=== PATIENT | female | born 1955 | race Caucasian/White ===

== ENCOUNTER 2016-08-04 11:47 | Emergency (ER) | payer OTHER ==
--- NOTE | 2016-08-04 12:13 | ER PHYSICIAN DOCUMENTATION ---
Physician Documentation [place] Name:Tisha Correia Age:60 yrs Sex:Female :1955 Arrival Date:08/04/2016 Time:11:47 Bed6 Private MD: Michael Hope Disposition: 08/04/16 12:05 Discharged to Home/Self Care. Impression: Wrist Sprain. - Condition is Good. - Discharge Instructions: WRIST [facility]. - Medical Reconciliation form form. - Follow up: Private Physician; When: As needed; Reason: Worsening of condition. - Problem is new. - Symptoms have improved. HPI: 08/04 11:57 This 60 yrs old Female presents to ER with complaints of Arm Pain - LEFT. sc 11:57 The patient or guardian complains of injury. The complaints affect the left wrist. sc Context: The problem was sustained outdoors, resulted from a fall, on an outstretched hand. Onset: The symptom(s)/episode began/occurred 10 day(s) ago. Modifying factors: the symptoms are aggravated by lifting weight. Historical: - Allergies: ERGOT ALKALOIDS; - Home Meds: 1. [place] Thyroid Oral 2. allopurinol Oral 3. duloxetine oral 4. progesterone micronized oral 5. Clonazepam Oral - PMHx: GOUT; HYPOTHYROIDISM; - PSHx: KNEE SURGERY; - Tetanus: < 10 years. - Ebola Screening: : Patient denies exposure to infectious person. Patient denies travel to an Ebola-affected area in the 21 days before illness onset. . - Social history: Smoking status: Patient states was never smoker of tobacco. Patient uses alcohol Patient/guardian denies using marijuana. ROS: 11:58 Constitutional: Negative for fever, chills, and weight loss. sc Eyes: Negative for injury, pain, redness, and discharge. Skin: Negative for injury, rash, and discoloration. 11:58 Neuro: Negative for headache, weakness, numbness, tingling, and seizure. sc 11:58 MS/extremity: Positive for injury or acute deformity, Negative for paresthesias, swelling, tingling. Exam: Constitutional: This is a well developed, well nourished patient who is awake, alert, and in no acute distress. Head/Face: Normocephalic, atraumatic. Eyes: Pupils equal round and reactive to light, extra-ocular motions intact. Lids and lashes normal. Conjunctiva and sclera are non-icteric and not injected. Cornea within normal limits. Periorbital areas with no swelling, redness, or edema. Neck: Trachea midline, no thyromegaly or masses palpated, and no cervical lymphadenopathy. Supple, full range of motion without nuchal rigidity, or vertebral point tenderness. No meningismus. Back: No spinal tenderness. No costovertebral tenderness. Full range of motion. 11:59 Skin: Warm, dry with normal turgor. Normal color with no rashes, no lesions, and no sc evidence of cellulitis. 11:59 Musculoskeletal/extremity: Extremities: grossly normal except: pain, ROM: full active range of motion, Circulation is intact in all extremities. Sensation intact. Vital Signs: 11:56 BP 141 / 78; Pulse 95; Resp 16; Temp 98.4(O); Pulse Ox 90% on R/A; Weight 73.94 kg (R); arc Height 5 ft. 4 in. (162.56 cm) (R); Pain 6/10; 11:56 Body Mass Index 27.98 (73.94 kg, 162.56 cm) arc MDM: 11:56 Patient medically screened. sc 12:00 Differential diagnosis: closed fracture, contusion. Data reviewed: vital signs, nurses sc notes, radiologic studies, and as a result, I will discharge patient. Counseling: I had a detailed discussion with the patient and/or guardian regarding: the historical points, exam findings, and any diagnostic results supporting the discharge/admit diagnosis, radiology results, the need for outpatient follow up, to return to the emergency department if symptoms worsen or persist or if there are any questions or concerns that arise at home. 08/04 12:26 Order name: WRIST; [place] [id number] EDMS 08/04 12:05 Order name: ORTHO: 2" Yunior Wrap; Complete Time: 12:12 sc Dispensed Medications: No medications were administered Signatures: Tejal Costa, Michael Bhatti RN, MD MD ia
--- NOTE | 2016-08-04 12:13 | ER NURSING DOCUMENTATION ---
Nurse's Notes [facility] Name:Tisha Correia Age:60 yrs Sex:Female :1955 Arrival Date:08/04/2016 Time:11:47 Bed6 Private MD: Diagnosis:Wrist Sprain Presentation: 08/04 11:57 Acuity: MALACHI 4 st 11:57 Presenting complaint: Patient states: Pt fell onto her left wrist [address] yesterday she shoveled snow and last night it hurt so bad she could not sleep. Transition of care: Home. 11:57 Method Of Arrival: Private Vehicle st Triage Assessment: 12:01 General: Appears in no apparent distress, Behavior is cooperative. Pain: Complains of st pain in left wrist Pain currently is 6 out of 10 on a pain scale. Pain began 10 days ago. Cardiovascular: No deficits noted. Respiratory: No deficits noted. GI: No deficits noted. Musculoskeletal: Range of motion intact in all extremities. Swelling absent. Historical: - Allergies: ERGOT ALKALOIDS; - Home Meds: 1. [place] Thyroid Oral 2. allopurinol Oral 3. duloxetine oral 4. progesterone micronized oral 5. Clonazepam Oral - PMHx: GOUT; HYPOTHYROIDISM; - PSHx: KNEE SURGERY; - Tetanus: < 10 years. - Ebola Screening: : Patient denies exposure to infectious person. Patient denies travel to an Ebola-affected area in the 21 days before illness onset. . - Social history: Smoking status: Patient states was never smoker of tobacco. Patient uses alcohol Patient/guardian denies using marijuana. Screenin:06 Infectious Disease Risk None. Abuse screen: Denies threats or abuse. Denies injuries st from another. Nutritional screening: No deficits noted. Vital Signs: 11:56 BP 141 / 78; Pulse 95; Resp 16; Temp 98.4(O); Pulse Ox 90% on R/A; Weight 73.94 kg (R); arc Height 5 ft. 4 in. (162.56 cm) (R); Pain 6/10; 11:56 Body Mass Index 27.98 (73.94 kg, 162.56 cm) arc ED Course: 11:49 Patient arrived in ED. lm3 11:56 Michael Desai MD is Attending Physician. sc 11:57 [place], Summer, RN is Primary Nurse. st 11:[address] 12:06 Valuables Remains with patient. Ice pack to injury. st 12:12 Yunior wrap to left wrist. st Administered Medications: No medications were administered Outcome: 12:05 Discharge ordered by . nm 12:12 Discharged to home ambulatory. st 12:12 Condition: stable 12:12 Discharge instructions given to patient, Instructed on discharge instructions, follow up and referral plans. Ortho Care 12:12 Patient [address] the ED[address] st 08/05 16:53 Discharge F/U Call: Spoke with: patient. Are you having any pain? yes. Location and lc description of pain: THROBS AT NITE, ELEVATION AND ICE ENCOURAGED, TYLENOL FOR PAIN, FU WITH ORTHO IF NOT IMPOVING Signatures: Tejal Costa, Bettie Guadalupe RN, RN RN lc Chew, Scott, MD MD sc Chew, Shwetha, Reg Reg arc Doris Hdz lm3
--- NOTE | 2016-08-04 12:24 | RADIOLOGY REPORT ---
HISTORY: Left wrist pain. TECHNIQUE: 4 views of the left wrist are submitted. There is no prior exam available for comparison. FINDINGS: Bone mineralization is within normal limits. Anatomic alignment is maintained. There is no signific ant joint space narrowing or osseous erosive change. No lytic or blastic lesions are identified. Sof t tissues are intact. There is no radio-opaque foreign body. IMPRESSION: Normal alignment, with no acute fracture-dislocation. Please note that acute fractures of the scaphoi d may be radiographically occult, and if the patient's pain persists, follow-up radiographs in 7 days is recommended for further evaluation. Final Electronic Signature: This report was electronically signed by Jamie Hill MD on 08/04/2016 1 2:22 PM. shumes /
== END 2016-08-04 12:13 | disposition home or self-care (01) ==
LOC: ER 11:47
DX: S63.502A Unspecified sprain of left wrist, initial encounter (principal); X50.9XXA Other and unspecified overexertion or strenuous movements or postures, initial encounter; Y92.89 Other specified places as the place of occurrence of the external cause; Y93.H9 Activity, other involving exterior property and land maintenance, building and construction; Z79.899 Other long term (current) drug therapy
CPT/HCPCS: 99283